=== PATIENT | female | born 1985 | race Caucasian/White ===

== ENCOUNTER 2020-09-25 12:47 | Outpatient (CLI) | payer BC, SELFPAY ==
[2020-09-25 14:59] LABS: Hematocrit 36.1 % (37.0-47.0); Hemoglobin 12.1 g/dL (12.0-15.0); Mean Corpuscular HGB Conc 33.5 g/dl (32-36); Mean Corpuscular Hemoglobin 27.2 pg (26-34); Mean Corpuscular Volume 81.1 fl (80-100); Mean Platelet Volume 9.4 fl (7.4-10.4); Platelet Count Result 243 k/mm3 (150-375); Red Blood Count 4.45 M/mm3 (4.2-5.4); Red Cell Distribution Width 13.2 % (11.5-14.5); White Blood Count 8.1 K/mm3 (4.5-10.0)
[2020-09-25 15:00] LABS: Glucose 1 Hour PP 50gm Dose 119 mg/dL
[2020-09-25 15:42] LABS: HIV 1/2 Ab P24 Ag Result Negative (Negative)
[2020-09-25 15:59] LABS: Rubella IgG Antibody 8.1 IU/ML
[2020-09-26 10:21] LABS: Rapid Plasma Reagin Non-Reactive (NonReactive)
[2020-09-29 19:17] LABS: CMV IgG Antibody <0.60 U/mL (<0.60)
[2020-09-30 03:48] LABS: Hepatitis Be Antigen Nonreactive
== END 2020-09-25 12:48 | disposition home or self-care (01) ==
PROVIDERS: PCP Internal Medicine; Visit Provider Obstetrics & Gynecology
DX: Z34.91 Encounter for supervision of normal pregnancy, unspecified, first trimester (principal); Z3A.00 Weeks of gestation of pregnancy not specified
CPT/HCPCS: 36415; 82947; 85027; 85461; 86592; 86644; 86703; 86747; 86762; 86787; 87086; 87088; 87350; G0432

== ENCOUNTER 2021-01-23 09:11 | Outpatient (CLI) | payer BC, SELFPAY ==
[2021-01-23 10:47] LABS: Hematocrit 31.4 % (37.0-47.0); Hemoglobin 10.1 g/dL (12.0-15.0)
[2021-01-23 11:10] LABS: Glucose 1 Hour PP 50gm Dose 152 mg/dL
[2021-01-23 11:46] LABS: HIV 1/2 Ab P24 Ag Result Negative (Negative)
== END 2021-01-23 09:12 | disposition home or self-care (01) ==
PROVIDERS: PCP Internal Medicine; Visit Provider Obstetrics & Gynecology
DX: Z34.91 Encounter for supervision of normal pregnancy, unspecified, first trimester (principal)
CPT/HCPCS: 36415; 82947; 85014; 85018; 86703; G0432

== ENCOUNTER 2021-02-04 08:48 | Outpatient (CLI) | payer BC, SELFPAY ==
--- NOTE | ~2021-02-04 | US_ITS ---
US right upper quadrant INDICATION: Nausea and vomiting with . PROCEDURE: Realtime right upper abdominal ultrasound. COMPARISON: No prior studies for comparison. FINDINGS: The pancreas is normal without focal mass or pancreatic ductal dilation. Liver echotexture is normal without focal mass or intrahepatic biliary dilatation. There is normal directional flow i n the portal vein. Gallbladder contains a 6 mm polyp. No definite stones, gallbladder wall thickening or pericholecystic fluid. Common bile duct measures 3.3 mm. No sonographic Sheets's sign. IMPRESSION: 1: Gallbladder polyp measuring 6 mm. Reviewed, dictated and finalized at location A.
== END 2021-02-04 08:49 | disposition home or self-care (01) ==
PROVIDERS: PCP Internal Medicine; Visit Provider Obstetrics & Gynecology
DX: R11.2 Nausea with vomiting, unspecified (principal); K82.4 Cholesterolosis of gallbladder
CPT/HCPCS: 76705

== ENCOUNTER 2021-02-04 09:59 | Outpatient (CLI) | payer BC, SELFPAY ==
[2021-02-04 10:45] LABS: Glucose Fasting Gestational 82 mg/dL (>/=95)
[2021-02-04 12:23] LABS: Glucose 1 Hour Gest 151 mg/dL (>/=180)
[2021-02-04 13:31] LABS: Glucose 2 Hour Gest 138 mg/dL (>/= 155)
[2021-02-04 14:22] LABS: Glucose 3 Hour Gest 111 mg/dL (>/=140)
== END 2021-02-04 10:00 | disposition home or self-care (01) ==
LOC: ANHLAB 10:02
PROVIDERS: PCP Internal Medicine; Visit Provider Obstetrics & Gynecology
DX: R73.09 Other abnormal glucose (principal)
CPT/HCPCS: 36415; 82951; 82952

== ENCOUNTER 2021-03-28 19:28 | Observation (INO) | payer BC, SELFPAY ==
[2021-03-28 18:45] VITALS: RESP 18; TEMP 36.9
[2021-03-28 19:45] VITALS: BMI 42.3
[2021-03-28 20:00] VITALS: BP 108/71; PULSE 84
--- NOTE | 2021-03-28 20:01 | OBADM ---
This patient, Joselin Lofton, admitted to the OB room OB Post 115 for observation. Patient/family oriented to hospital policies and general routines including ID bracelet, bed and alarms, visiting hours, pain management, procedures, bathroom and other care routines, personal items, smoking policy, room service/diet, and visiting hours. Patient/Family are encouraged to report perceived risks to care and to ask questions if they do not understand what they are told or what they should do.
--- NOTE | 2021-03-28 23:39 | PC.NURSE ---
pt denies leaking, pain or bleeding, pt feeling movements
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
== END 2021-03-28 23:50 | disposition home or self-care (01) ==
PROVIDERS: Admitting Provider Obstetrics & Gynecology; PCP Internal Medicine; Visit Provider Obstetrics & Gynecology
DX: Z04.1 Encounter for examination and observation following transport accident (principal); O99.891 Other specified diseases and conditions complicating pregnancy; V89.2XXA Person injured in unspecified motor-vehicle accident, traffic, initial encounter; Z3A.38 38 weeks gestation of pregnancy
CPT/HCPCS: G0378; G0379

== ENCOUNTER 2021-04-01 16:40 | Outpatient (RCR) | payer BC, SELFPAY ==
[2021-02-14 14:44] VITALS: BP 101/72; PULSE 97
[2021-02-21 15:21] VITALS: BP 109/70; PULSE 97
[2021-03-07 14:33] VITALS: BP 109/70; PULSE 97
[2021-03-14 14:12] VITALS: BP 97/72; PULSE 92
[2021-03-21 15:32] VITALS: BP 116/78; PULSE 100
[2021-03-28 15:13] VITALS: BP 120/81; PULSE 97
[2021-04-01 18:12] VITALS: BP 117/79; PULSE 88
== END 2021-05-15 23:59 | disposition home or self-care (01) ==
LOC: ANHOBOP 16:40
PROVIDERS: PCP Internal Medicine; Visit Provider Obstetrics & Gynecology
DX: O09.513 Supervision of elderly primigravida, third trimester (principal); Z3A.32 32 weeks gestation of pregnancy; Z3A.33 33 weeks gestation of pregnancy; Z3A.34 34 weeks gestation of pregnancy; Z3A.35 35 weeks gestation of pregnancy; Z3A.36 36 weeks gestation of pregnancy; Z3A.37 37 weeks gestation of pregnancy; O36.8130 Decreased fetal movements, third trimester, not applicable or unspecified; Z3A.38 38 weeks gestation of pregnancy
CPT/HCPCS: 59025

== ENCOUNTER 2021-04-03 15:38 | Inpatient (IN) | payer BC, SELFPAY ==
[2021-04-03] VITALS (12 sets, daily range): BP systolic 93–126; BP diastolic 62–84; PULSE 82–103; TEMP 37.2–37.5; BMI 41.7
--- NOTE | 2021-04-03 16:01 | LDADM ---
This patient, Joselin Lofton, was admitted to Labor/Delivery/Recovery 104 on 04/03/21 at 15:38. Plans for labor, pain management and were discussed with patient. Patient/family oriented to hospital policies and general routines including ID bracelet, bed and alarms, visiting hours, pain management, procedures, bathroom and other care routines, personal items, smoking policy, room service/diet and guest tray routines, infant security routines, and visiting hours. Patient/Family are encouraged to report perceived risks to care and to ask questions if they do not understand what they are told or what they should do. See OBIX for further documentation.
[2021-04-03 16:10] LABS: Basophils Percent Auto 0.3 % (0.2-1.2); Eosinophils Percent Auto 0.3 % (0-4.4); Hemoglobin 11.6 g/dL (12.0-15.0); Immature Granulocyte Absolute 0.04 K/mm3 (0.00-0.031); Immature Granulocyte Percent A 0.4 % (0-0.5); Lymphocytes Absolute Auto 1.35 K/mm3 (0.9-3.2); Lymphocytes Percent Auto 13.4 % (18.3-44.2); Mean Corpuscular HGB Conc 34.1 g/dl (32-36); Mean Corpuscular Volume 79.3 fl (80-100); Mean Platelet Volume 9.8 fl (7.4-10.4); Monocytes Absolute Auto 0.6 K/mm3 (0.1-0.6); Monocytes Percent Auto 5.5 % (2.6-8.5); Neutrophils Percent Auto 80.1 % (45.5-73.1); Platelet Count Result 217 k/mm3 (150-375); Red Blood Count 4.29 M/mm3 (4.2-5.4); Red Cell Distribution Width 13.6 % (11.5-14.5)
[2021-04-03] MEDS: DINOPROSTONE 10 MG VAG INSERT VAGINAL (16:22)
[2021-04-03] MEDS: ZOLPIDEM TARTRATE (*CRX) 5 MG TABLET PO (20:48)
[2021-04-03] MEDS: fentaNYL CITRATE INJ (*CRX) 100 MCG/2 ML VIAL 50 MCG IV PUSH (23:09)
[2021-04-04] VITALS (245 sets, daily range): BP systolic 93–139; BP diastolic 50–107; PULSE 69–285; RESP 16; TEMP 36.4–37.3; O2SAT 59–100
[2021-04-04] MEDS: LACTATED RINGERS 1,000 ML 125 ML IV CONT ×2 (00:42→02:07)
--- NOTE | 2021-04-04 01:32 | WPDANESEPPF ---
Anes - Initial Pre Proc Eval Procedure: labor epidural Date/Time: 04/04/21 01:32 Surgeon: Jeffery Headley MD Pre Op Diagnosis: labor pain Pre Op Diagnosis: iol Patient Data Age: 36 Gender: F Height: 1.57 m Weight: 103.5 kg Last Vital Signs Temp 37.2 C 04/03/21 20:01 Pulse 104 H 04/04/21 01:30 BP 112/69 04/04/21 01:30 Pulse Ox 98 04/04/21 01:29 Allergies Allergy/AdvReac Type Severity Reaction Status Date / Time No Known Allergies Allergy Verified 03/14/21 13:57 Home Medications Medication Instructions Recorded Confirmed Type PNV cmb#95-ferrous fumarate-FA 1 tablet PO DAILY 03/14/21 04/03/21 History [] lansoprazole 15 mg PO DAILY 03/14/21 04/03/21 History Laboratory Tests 04/03/21 04/03/21 04/03/21 16:00 16:01 16:01 WBC 10.0 K/mm3 K/mm3 (4.5-10.0) RBC 4.29 M/mm3 M/mm3 (4.2-5.4) Hgb 11.6 g/dL L g/dL (12.0-15.0) Hct 34.0 % L % (37.0-47.0) MCV 79.3 fl L fl (80-100) MCH 27.0 pg pg (26-34) MCHC 34.1 g/dl g/dl (32-36) RDW 13.6 % % (11.5-14.5) Plt Count 217 k/mm3 k/mm3 (150-375) MPV 9.8 fl fl (7.4-10.4) Immature Gran % (Auto) 0.4 % % (0-0.5) Neut % (Auto) 80.1 % H % (45.5-73.1) Lymph % (Auto) 13.4 % L % (18.3-44.2) [place] % (Auto) 5.5 % % (2.6-8.5) Eos % (Auto) 0.3 % % (0-4.4) Baso % (Auto) 0.3 % % (0.2-1.2) Lymph # (Auto) 1.35 K/mm3 K/mm3 (0.9-3.2) [place] # (Auto) 0.6 K/mm3 K/mm3 (0.1-0.6) Eos # (Auto) 0.0 K/mm3 K/mm3 (0-0.3) Baso # (Auto) 0.0 K/mm3 K/mm3 (0.0-0.1) Abs Immat Gran (auto) 0.04 K/mm3 H K/mm3 (0.00-0.031) Absolute Neuts (auto) 8.0 K/mm3 H K/mm3 (1.3-6.7) Absolute Nucleated RBC 0.0 K/mm3 K/mm3 (0.0-0.012) Nucleated RBC % 0.0 % % (0.0-0.2) RPR Pending Blood Type O Positive Antibody Screen Negative Patient hx anesthesia problems: none Family hx anesthesia problems: none Results Review: All pre-operative results and documents have been reviewed as part of the pre-operative evaluation. [facility] Family History Family History (Updated 03/14/21 @ 14:00 by Todd Magana RN) Father Heart defect Diabetes mellitus Grandparent Diabetes mellitus Social History Social History Smoking status: Never smoker Substance use: never Spiritual care concerns: No Anes - Eval Final PreProcedure Day of Procedure 04/04/21 01:32 Patient weight: morbidly obese ASA classification: III Anesthesia type and monitoring: regional epidural and standard monitoring Results Review: All pre-operative results and documents have been reviewed as part of the pre-operative evaluation. Informed Consent: The patient's anesthetic plan and its attendant risks and benefits were discussed with the patient/family/POA. Questions were solicited and answers provided to the satisfaction of the patient/family/POA.
[2021-04-04] MEDS: FAMOTIDINE 20 MG/2 ML VIAL IV PUSH (02:06)
[2021-04-04] MEDS: OXYTOCIN 30 UNITS/NS 500 ML 30 UNITS/500 ML BAG 6 UNITS IV CONT (05:16)
[2021-04-04 06:26] LABS: Rapid Plasma Reagin Non-Reactive (NonReactive)
[2021-04-04] MEDS: SODIUM CHLORIDE 0.9% IV 300 ML 600 ML I-UTERINE (11:08)
--- NOTE | 2021-04-04 15:38 | WPDHPUPDATE1 ---
History and Physical Update Update Date/Time: 04/04/21 15:38 History and Physical has been reviewed, including an updated exam of the patient. There are NO changes in the patient's condition. Risks, benefits, and alternatives have been discussed and questions answered. Patient agrees to proceed with procedure.
--- NOTE | 2021-04-04 15:38 | WPDOBADMIT ---
Obstetrics - Admit Note Admission Note: record reviewed. No pertinent additions to the history and/or any subsequent changes in the physical findings that are not consistent with the expected course of the were found. Additions to the history and/or subsequent changes in the physical findings follow. None.
--- NOTE | 2021-04-04 15:39 | P.PCNOB_ITS ---
OB - Delivery Note Procedure Route of delivery: Episiotomy description: None Laceration Description: Vaginal - 2nd Degree Delivery repair: chromic Specimen: No Quantitative Blood Loss (ml): 350 Anesthesia type: Epidural Disposition: floor Narrative: Patient prepped and draped in the usual manner for this procedure. Maternal expulsive efforts readily delivered vertex with nuchal cord readily reduced in the rest of baby delivered without difficulty. Cord was clamped and cut placenta delivered spontaneously. Uterus well contracted. Second-degree vaginal laceration was noted approximated using 2 0 chromic in a running interlocking manner on the vaginal tissue deep tissue and a subcuticular layer on the perineum. There was a minimal amount of oozing from multiple shallow lacerations so packing was placed in left in place for 30minutes. At this point the procedure was considered terminated with immediate postoperative condition mother and baby both good. [place] Baby Weeks of gestation at delivery: 39 gender: Male Weight (pounds): 6 Weight (ounces): 15 score one minute: 8 score five minutes: 9
[2021-04-04] MEDS: OXYTOCIN 30 UNITS/NS 500 ML 30 UNITS/500 ML BAG 125 UNITS IV CONT (16:25)
[2021-04-04] MEDS: IBUPROFEN 600 MG TABLET PO ×2 (17:20→23:09)
[2021-04-04] MEDS: BENZOCAINE 20% AER SPR (*SP) 56 GM CAN 1 SPRAY TOPICAL (17:31)
[2021-04-04] MEDS: WITCH HAZEL 40 PADS 1 PAD TOPICAL (17:32)
--- NOTE | 2021-04-04 18:01 | OBPPTRN ---
1752 Patient transferred to post room #280 via W/C. Support person present. Oriented to unit, room, information board, rooming in, admission packet and security measures. Patient verbalizes understanding.
[2021-04-05] VITALS: BP 117/77; PULSE 99; RESP 16; TEMP 37.3
[2021-04-05 04:55] VITALS: BP 102/67; PULSE 79; RESP 16; TEMP 36.5
[2021-04-05] MEDS: IBUPROFEN 600 MG TABLET PO ×2 (04:57→14:17)
[2021-04-05 05:44] LABS: Hematocrit 26.3 % (37.0-47.0); Hemoglobin 8.6 g/dL (12.0-15.0)
--- NOTE | 2021-04-05 07:47 | PM.OBDSVD ---
DS: Admitting Diagnosis Discharge Date 04/06/2021 Admitting Diagnosis OB - DS: Summary OB Procedures : None OB Procedures Intrapartum: Spontaneous Vag Delivery OB Procedures: : None Time Spent with Patient Time attestation: Total time spent providing and/or coordinating discharge services: DS: Data Data Completed and Pending Pending studies at discharge: Pending at discharge 04/04/21 15:01 Surgical [PTH] Routine Labs on day of discharge: Labs from last 24 hours 04/05/21 05:03 Hgb 8.6 L D Hct 26.3 L Discharge Plan Discharge Discharging Clinician: Jeffery Headley Anticipated Discharge Date/Time: 04/06/21 07:48 Patient Disposition: Home, Self-Care Activity: as tolerated Diet: as tolerated Patient Instructions: Antibiotic Form Stand Alone Forms: General Discharge Information Follow-up/Referrals: Jeffery Headley MD [Physician] - 3 Weeks Discharge Medications: New ibuprofen 600 mg Tablet 600 mg PO Q6H Qty: 30 RF: 0 Continued lansoprazole 15 mg Capsule,Delayed Release(Dr/Ec) 15 mg PO DAILY RF: 0 PNV cmb#95-ferrous fumarate-FA [] 28 mg iron- 800 mcg Tablet 1 tablet PO DAILY RF: 0 Date of admission: 04/03/21 15:38 Primary Care Provider: Yarely,Eddie Pierre Admitting Provider: Jeffery Headley Attending physician on admission: Jeffery Headley Condition: Stable
[2021-04-05 08:15] VITALS: BP 100/66; PULSE 87; RESP 18; TEMP 36.2
[2021-04-05] MEDS: DOCUSATE SODIUM 100 MG CAPSULE PO (08:16)
[2021-04-05] MEDS: POLYSACCHARIDE IRON COMPLEX 150 MG CAPSULE PO ×2 (08:16→16:22)
[2021-04-05] MEDS: MULTIVIT/MIN/PREN/FOL AC/IRON TABLET 1 TAB PO (08:16)
[2021-04-05] MEDS: PANTOPRAZOLE 40 MG TABLET PO (08:16)
--- NOTE | 2021-04-05 10:24 | WPDANLDPN2 ---
Anes-Prog Note L&D Date/Time: 04/05/21 10:24 Comfortable throughout: labor and delivery Neuraxial method: epidural Epidural/Spinal procedure site: clean & non-tender Neuro status: Neuro function grossly intact. Cardiovascular status: normal Respiratory status: normal Airway patency: baseline Mental status: baseline Post-Op hydration status: normal Vital Signs: Last Vital Signs Temp 36.2 C L 04/05/21 08:15 Pulse 87 04/05/21 08:15 Resp 18 04/05/21 08:15 BP 100/66 04/05/21 08:15 Pulse Ox 98 04/04/21 14:59 Pain score (VAS): 05/26 I/O: Intake & Output 04/04/21 04/05/21 04/05/21 23:59 07:59 15:59 Intake Total 1000 Balance 1000 Post-procedural complaints: none Patient feedback: Patient satisfied with anesthetic care.
[2021-04-05 13:00] VITALS: BP 105/70; PULSE 88; RESP 18
[2021-04-05 19:15] VITALS: BP 100/63; PULSE 91; RESP 16; TEMP 36.7; O2SAT 99
--- NOTE | 2021-04-05 20:44 | PC.NURSE ---
Patient viewed the discharge video Mother & Baby Care, The First Two Weeks online. Patient was given the opportunity and encouraged to ask questions. Patient verbalized understanding of information shared and has been given the mother/baby guide for home reference.
[2021-04-06] MEDS: IBUPROFEN 600 MG TABLET PO (03:10)
[2021-04-06] MEDS: MULTIVIT/MIN/PREN/FOL AC/IRON TABLET 1 TAB PO (08:53)
[2021-04-06] MEDS: POLYSACCHARIDE IRON COMPLEX 150 MG CAPSULE PO (08:53)
[2021-04-06] MEDS: PANTOPRAZOLE 40 MG TABLET PO (08:53)
[2021-04-06] MEDS: DOCUSATE SODIUM 100 MG CAPSULE PO (08:53)
[2021-04-06] MEDS: MEASLES,MUMPS,RUBELLA VACCINE 0.5 ML VIAL SUB-Q (08:54)
[2021-04-06 09:00] VITALS: BP 120/83; PULSE 98; TEMP 36.2; O2SAT 20
[2021-04-07 09:39] VITALS: BP 111/72; PULSE 90; RESP 20; TEMP 36.6; O2SAT 100
--- NOTE | 2021-04-15 16:27 | P.DS_ITS ---
DS: Admitting Diagnosis Discharge Date 04/06/21 Admitting Diagnosis OB - DS: Summary OB Procedures : None OB Procedures Intrapartum: Spontaneous Vag Delivery OB Procedures: : None Time Spent with Patient Time attestation: Total time spent providing and/or coordinating discharge services: DS: Data Data Completed and Pending Completed studies during hospitalization: Pending at discharge 04/04/21 15:01 Surgical [PTH] Routine Discharge Plan Discharge Consulting providers: Benji Flores Discharging Clinician: Jeffery Headley Anticipated Discharge Date/Time: 04/06/21 07:48 Patient Disposition: Home, Self-Care Activity: as tolerated Diet: as tolerated Discharge Instructions: Education: Mom and Baby Guide and Preeclampsia Handout Given to: Mother Follow-Up: Call your delivering provider's office for an appointment to be seen in: 3 weeks [facility]. Appointment Date/Time: April 07, 2021 at 9:00 am What to expect at your follow-up visit: Physical Assessment Call [phone] if you are unable to keep your appointment time. BREAST CARE: * Wear a snug supportive bra. * For engorgement discomfort: Breast Feeding or Pumping: * Apply warm moist washcloths * Express milk as needed to relieve engorgement * Wear loose clothing EPISIOTOMY/PERINEAL CARE: * Until bleeding stops, use your ginger bottle after urinating * Change your pad frequently throughout the day * You may take sitz baths several times a day (fill your bathtub with warm water and soak for 20 minutes.) Do NOT bathe in the water * No tub baths until seen by your physician - You may shower ACTIVITY: * Rest as much as possible. * Do not exercise or lift anything heavier than your baby (such as laundry or other children.) * Avoid stairs or driving as much as possible. * Do not put anything into the vagina. No douching, tampons, or sexual activity until seen by physician. NOTIFY PHYSICIAN IF YOU HAVE ANY QUESTIONS OR IF ANY OF THE FOLLOWING SYMPTOMS OCCUR: * If your episiotomy becomes red, swollen, or more painful than what you have experienced in the hospital. * If your vaginal bleeding becomes foul smelling. * If your vaginal bleeding becomes more heavy than a period or if your bleeding changes from pink to bright red. However, you may pass an occasional walnut- sized clot once or twice for the first week . * If you experience a sharp, shooting pain in you calves. * If you discover a hard, reddened area on your breast or if you experience flu- like symptoms. DIET: * Eat regular, well-balanced meals. * Drink plenty of fluids daily. If , drink to thirst. Stand Alone Forms: General Discharge Information Follow-up/Referrals: Jeffery Headley MD [Physician] - 3 Weeks Discharge Medications: New ibuprofen 600 mg Tablet 600 mg PO Q6H Qty: 30 RF: 0 Continued lansoprazole 15 mg Capsule,Delayed Release(Dr/Ec) 15 mg PO DAILY RF: 0 PNV cmb#95-ferrous fumarate-FA [] 28 mg iron- 800 mcg Tablet 1 tablet PO DAILY RF: 0 Date of admission: 04/03/21 15:38 Primary Care Provider: Yarely,Eddie Pierre Admitting Provider: Jeffery Headley Attending physician on admission: Jeffery Headley Condition: Stable
--- NOTE | 2021-04-15 16:27 | PM.OBTRLD ---
OB - Triage/Final Diagnosis Visit Information Comments/Additional reasons for admission: I have assessed the risk for this patient, Joselin Lofton, and determined that she would benefit from observation care. Evaluation Laboratory results: Laboratory Tests 04/03/21 04/03/21 04/03/21 16:00 16:01 16:01 WBC 10.0 RBC 4.29 Hgb 11.6 L Hct 34.0 L MCV 79.3 L MCH 27.0 MCHC 34.1 RDW 13.6 Plt Count 217 MPV 9.8 Immature Gran % (Auto) 0.4 Neut % (Auto) 80.1 H Lymph % (Auto) 13.4 L [place] % (Auto) 5.5 Eos % (Auto) 0.3 Baso % (Auto) 0.3 Lymph # (Auto) 1.35 [place] # (Auto) 0.6 Eos # (Auto) 0.0 Baso # (Auto) 0.0 Abs Immat Gran (auto) 0.04 H Absolute Neuts (auto) 8.0 H Absolute Nucleated RBC 0.0 Nucleated RBC % 0.0 RPR Non-reactive Blood Type O Positive Antibody Screen Negative 04/05/21 05:03 WBC RBC Hgb 8.6 L D Hct 26.3 L MCV MCH MCHC RDW Plt Count MPV Immature Gran % (Auto) Neut % (Auto) Lymph % (Auto) [place] % (Auto) Eos % (Auto) Baso % (Auto) Lymph # (Auto) [place] # (Auto) Eos # (Auto) Baso # (Auto) Abs Immat Gran (auto) Absolute Neuts (auto) Absolute Nucleated RBC Nucleated RBC % RPR Blood Type Antibody Screen
== END 2021-04-06 14:04 | disposition home or self-care (01) | DRG 807 ==
LOC: ANHLDR 15:51 → ANHOB2 04-04 18:03
PROVIDERS: Admitting Provider Obstetrics & Gynecology; PCP Internal Medicine; Visit Provider Obstetrics & Gynecology
DX: O76 Abnormality in fetal heart rate and rhythm complicating labor and delivery (principal); Z37.0 Single live birth; O70.1 Second degree perineal laceration during delivery; O69.81X0 Labor and delivery complicated by cord around neck, without compression, not applicable or unspecified; Z3A.39 39 weeks gestation of pregnancy; Z23 Encounter for immunization
CPT/HCPCS: 36415; 85014; 85018; 85025; 86592; 86850; 86900; 86901; 88307; 90471; 90653; 90710; A9270; G0008; J2590; J2795; J3010; J7030; J7120

== ENCOUNTER 2023-11-04 15:49 | Outpatient (CLI) | payer OTHER, SELFPAY ==
--- NOTE | ~2023-11-04 | MM_ITS ---
EXAMINATION: MM screening heladio BI w david HISTORY: Screening TECHNIQUE: Craniocaudal and mediolateral oblique 3-D tomosynthesis images were obtained and synthetic 2-D images were generated. CAD analysis was submitted and interpreted. COMPARISON: No prior mammogram is available for comparison at this institution. BREAST PARENCHYMAL COMPOSITION: Not dense: There are scattered areas of fibroglandular density. FINDINGS: There are bilateral breast asymmetries in the upper outer quadrants. There are no suspiciou s calcifications. IMPRESSION: 1. Bilateral breast asymmetries. 2. Additional mammographic views and possible breast ultrasound are recommended. BI-RADS Category 0: Incomplete: Needs additional imaging evaluation. Reviewed, dictated and finalized at location B. IMPRESSION: 1. Bilateral breast asymmetries. 2. Additional mammographic views and possible breast ultrasound are recommended . BI-RADS Category 0: Incomplete: Needs additional imaging evaluation.
== END 2023-11-04 15:50 | disposition home or self-care (01) ==
PROVIDERS: PCP Internal Medicine; Visit Provider Obstetrics & Gynecology
DX: Z12.31 Encounter for screening mammogram for malignant neoplasm of breast (principal); R92.8 Other abnormal and inconclusive findings on diagnostic imaging of breast
CPT/HCPCS: 77063; 77067

== ENCOUNTER 2023-11-26 13:33 | Outpatient (CLI) | payer OTHER, SELFPAY ==
--- NOTE | ~2023-11-26 | MMUS_ITS ---
EXAMINATION: MM diagnostic heladio BI w david, US breast BI limited HISTORY: Follow-up breast asymmetries TECHNIQUE: Additional 3-D tomosynthesis images of the breasts were performed and synthetic 2-D images were generated. CAD analysis was submitted and interpreted. High resolution limited bilateral breast ultrasound was performed. COMPARISON: 11/04/2023 BREAST PARENCHYMAL COMPOSITION: Dense: The breasts are extremely dense, which lowers the sensitivity of mammography. FINDINGS: MAMMOGRAPHIC FINDINGS: There are asymmetries in the upper outer quadrant of both breasts which compresses with spot compress ion and mediolateral views. No discrete mass, suspicious calcifications or architectural distortion i s identified. ULTRASOUND: Limited bilateral breast ultrasound: No discrete solid or cystic mass. There is heterogeneous echotex ture in both breasts in the areas of asymmetry. IMPRESSION: 1. No evidence for malignancy in either breast. 2. Routine yearly screening mammogram and regular clinical breast examination are recommended. BI-RADS Category 2: Benign finding(s). Reviewed, dictated and finalized at location B. IMPRESSION: 1. No evidence for malignancy in either breast. 2. Routine yearly screening mammogram and regular clinical breast examination a re recommended. BI-RADS Category 2: Benign finding(s).
== END 2023-11-26 13:34 | disposition home or self-care (01) ==
PROVIDERS: PCP Internal Medicine; Visit Provider Obstetrics & Gynecology
DX: N64.89 Other specified disorders of breast (principal); R92.8 Other abnormal and inconclusive findings on diagnostic imaging of breast
CPT/HCPCS: 76642; 77062; 77066; G0279

== ENCOUNTER 2025-03-01 10:13 | Outpatient (CLI) | payer OTHER, SELFPAY ==
--- NOTE | ~2025-03-01 | MM_ITS ---
EXAMINATION: MM screening heladio BI w david HISTORY: Screening TECHNIQUE: Craniocaudal and mediolateral oblique 3-D tomosynthesis images were obtained and synthetic 2-D images were generated. CAD analysis was submitted and interpreted. COMPARISON: 11/04/2023 BREAST PARENCHYMAL COMPOSITION: The breasts are heterogeneously dense, which may obscure small masses. FINDINGS: There is no evidence of suspicious mass, calcification, or architectural distortion to suggest malignancy. There has been no suspicious interval change. IMPRESSION: 1. No mammographic evidence of malignancy. Recommend routine screening mammography in one year. BI-RADS Category 2: Benign finding(s) Reviewed, dictated and finalized at location Q. IMPRESSION: 1. No mammographic evidence of malignancy. Recommend routine screening mammogra phy in one year. BI-RADS Category 2: Benign finding(s)
--- OUTSIDE RECORDS SUMMARY | 2025-03-01 11:41 | XMS_ITS | Clinical Summary ---
Author Organization [facility] [address] Address [address] [place] [address] Care Team Providers Care Clinical Nursing Coordinator Name Role Phone Eddie Pritchett MD Primary Care Provider [phone] Source Comments [facility] [address],non-owned Affiliates and Associated Physician Practices is amultiple site organization consisting of ambulatory clinics and hospital sitesin [place], [place], [place] and [place]. This disclosure is being madepursuant to the Care Everywhere program and may not contain all information available regarding this patient. Last updated 18.[facility] [address] Allergies No known active allergies Medications * Be aware that medications may not be up to date on this document. Alwaysverify current medications with the patient. PANTOPRAZOLE SODIUM PO Active albuterol HFA (PROVENTIL;VENT ORTIZ;PROAIR) 108 (90 Base) MCG/ACT inhaler Inhale 2 puffs by mouth every 4 hours as needed 1 Inhaler 07/25/2019 Active benzonatate (TESSALON) 200 MG capsule Take 1 capsule by mouth 3 times daily as needed for Cough 30 capsule 07/25/2019 Active Social History Tobacco Use Types Packs/Day Years Used Date Smoking Tobacco: Never Smokeless Tobacco: Never Comments No Sex and Gender Information Value Date Recorded Sex Assigned at Not on file Legal Sex Female 10:57 AM CDT Gender Identity Not on file Sexual Orientation Not on file Last Filed Vital Signs Vital Sign Reading Time Taken Comments Blood Pressure 106/70 07/25/2019 8:51 AM CDT Pulse 100 07/25/2019 8:51 AM CDT Temperature 37 C (98.6 F) 07/25/2019 8:51 AM CDT Respiratory Rate 16 07/25/2019 8:51 AM CDT Oxygen Saturation 98% 07/25/2019 8:51 AM CDT Inhaled Oxygen Concentration - - Weight 104.3 kg (230 lb) 07/25/2019 8:51 AM CDT Height 160 cm (5' 3) 07/25/2019 8:51 AM CDT Body Mass Index 40.74 07/25/2019 8:51 AM CDT Plan of Treatment Health Maintenance Due Date Last Done Comments LIPID TESTING 1983 MAMMOGRAM 1983 HIV SCREENING 1998 HEPATITIS C SCREENING 02/08/2001 DTAP/TDAP/TD VACCINES (1 - Tdap) 2002 HEPATITIS B VACCINE (1 of 3 - 19+ 3-dose series) 2002 HPV VACCINE (1 - 3-dose SCDM series) 2010 DEPRESSION SCREENING 05/17/2024 COVID-19 VACCINE (3 - 2024-2 6 season) 2025 02/14/2021, 01/24/2021 INFLUENZA VACCINE (#1) 2025 04/06/2021 ZOSTER VACCINE (1 of 2) 2033 HIB VACCINE Aged Out No longer eligi ble based on patient's age to complete this topic MENINGOCOCCAL (Group B) VACCINE SHARED DECISION-MAKING Aged Out No longer eligible based on patient's age to complete this topic MENINGOCOCCAL GROUPS A/C/Y/W VACCINE Aged Out No longer eligible b ased on patient's age to complete this topic PNEUMOCOCCAL VACCINE Aged Out No long er eligible based on patient's age to complete this topic Insurance Care Teams Clinical Nursing Coordinator Relationship Specialty Start Date End Date Eddie Pritchett MD [address] [place] [address] PCP - General Internal Medicine 11/07/18
== END 2025-03-01 10:14 | disposition home or self-care (01) ==
LOC: ANHFOHIMG 10:14
PROVIDERS: Visit Provider Obstetrics & Gynecology
DX: Z12.31 Encounter for screening mammogram for malignant neoplasm of breast (principal)
CPT/HCPCS: 77063; 77067